=== PATIENT | male | born 2005 | race Caucasian/White ===

== ENCOUNTER 2024-04-02 09:33 | Emergency (ER) | payer OTHER ==
[~2024-04-02] VITALS: Ht 182.9 cm; Wt 79.5 kg
[2024-04-02] MEDS: IBUPROFEN 600MG TAB PO ONE (11:03)
[2024-04-02 12:13] VITALS: BP 117/70; TEMP 97.9; O2SAT 99
== END 2024-04-02 12:15 | disposition home or self-care (01) ==
LOC: M ED 09:33
DX: S80.911A Unspecified superficial injury of right knee, initial encounter (principal); Y92.410 Unspecified street and highway as the place of occurrence of the external cause; Y93.9 Activity, unspecified; Y99.9 Unspecified external cause status; V47.5XXA Car driver injured in collision with fixed or stationary object in traffic accident, initial encounter